=== PATIENT | female | born 1955 | race African-American/Black ===

== ENCOUNTER 2023-12-24 12:29 | Inpatient (IN) | payer OTHER ==
[2023-12-24 13:19] LABS: #Basophils Less than 0.03 10x3/uL (0.0-0.2); %Basophils 0.4 % (0.0-1.0); %Eosinophils 1.7 % (0.0-10.0); %Monocytes 5.8 % (0.0-10.0); %Neutrophils 68.9 % (42.0-75.0); Hematocrit 30.9 % (36.0-47.0); Hemoglobin 10.3 g/dL (12.0-16.0); Mean Corpuscular HGB CONC 33.3 g/dL (32.0-36.0); Mean Corpuscular Hemoglobin 31.9 pg (27.0-31.0); Mean Corpuscular Volume 95.7 fL (78.0-98.0); Mean Platelet Volume 10.6 fL (7.4-10.4); Platelet Count 209 10x3/uL (130-400); RBC Distribution Width 12.9 % (11.5-14.5); Red Blood Cell (RBC) Count 3.23 mill/uL (4.20-5.40)
[2023-12-24 13:36] LABS: Lipase 12 U/L (8-78); Magnesium 1.8 mg/dL (1.6-2.6)
[2023-12-24 13:37] LABS: Acetaminophen Less than 10 mcg/mL (10.0-30.0); Alcohol Less than 10.0 mg/dL (Less than 10); Salicylate Less than 8.0 mg/dL (15.0-30.0)
[2023-12-24 13:37] LABS: PTT 28.8 sec (22.9-36.1); Prothrombin Time 13.1 sec (12.0-14.7)
[2023-12-24 13:38] LABS: ALT (SGPT) 8 U/L (8-55); AST (SGOT) 21 U/L (5-34); Albumin 3.5 g/dL (3.4-4.8); Alkaline Phosphatase 124 U/L (40-110); Anion Gap 15 mmol/L (10-20); BUN (Urea Nitrogen) 6 mg/dL (9.8-20.1); Bilirubin, Total 0.5 mg/dL (0.2-1.2); CK (CPK) 144 U/L (29-168); Calc. Creatinine Clearance 0 mL/min (70-130); Carbon Dioxide 21 mmol/L (23-31); Chloride 103 mmol/L (98-107); Estimated GFR 65; Globulin 3.5 g/dL (2.4-3.5); Glucose 105 mg/dL (80-115); Potassium 3.7 mmol/L (3.5-5.1); Sodium 135 mmol/L (136-145)
[2023-12-24 13:42] LABS: Troponin I Less than 0.010 ng/mL (< 0.028)
[2023-12-24 13:48] LABS: Bacteria/HPF None Seen HPF (None Seen); Bilirubin Negative (Negative); Blood, Urine Negative (Negative); CAUTI Indications for Culture Alt mental st,lethar; Clarity Clear (Clear); Glucose, Urine (Dipstick) Normal (Negative); Ketone, Urine Negative (Negative); Leukocyte Negative Leu/uL (Negative); Nitrite Negative (Negative); Protein, Urine (Dipstick) Negative (Neg-Trace); RBC/HPF 0-3 HPF (0-3); Specific Gravity, Urine 1.024 (1.002-1.036); Squamous Epithelial None Seen HPF (0-3); Urobilinogen Normal mg/dL (Less than 2); WBC/HPF None Seen HPF (0-3)
[2023-12-24 13:58] LABS: Amphetamine Not Detected (NotDetected); Barbiturates Screen Not Detected (NotDetected); Benzodiazepine Screen Not Detected (NotDetected); Cocaine Metabolite Screen Not Detected (NotDetected); Methadone Not Detected (NotDetected); Methamphetamine Not Detected (NotDetected); Opiate Screen Not Detected (NotDetected); Oxycodone Screen Not Detected (NotDetected); Phencyclidine (PCP) Not Detected (NotDetected); THC/Cannabinoid Screen Not Detected (NotDetected); Tricyclic Screen Not Detected (NotDetected)
[2023-12-24 14:04] LABS: Urine Culture Reflex No No
[2023-12-24 14:26] LABS: Influenza A by NAA Not Detected (NotDetected); Influenza B by NAA Not Detected (NotDetected); SARS-CoV-2 NAA Rapid Test Not Detected (NotDetected)
[2023-12-24] MEDS ORDERED: Aspirin Chewable 81 MG TAB ONE (15:30)
[2023-12-24] MEDS ORDERED: hydrALAZINE 20 MG/ML VIAL ONE (15:54)
[2023-12-24] MEDS ORDERED: niCARdipine 25 MG/10 ML SDV ONE (16:40)
[2023-12-24 18:18] LABS: Troponin I Less than 0.010 ng/mL (< 0.028)
[2023-12-24] MEDS: Acetaminophen 325 MG TAB PO SCH (19:35)
[2023-12-24] MEDS: levETIRAcetam 500 MG (5 mL) VIAL SLOW IVP SCH (19:45)
[2023-12-24] MEDS: Lorazepam 2 MG/ML VIAL ONE (19:46)
[2023-12-24] MEDS: Lorazepam 2 MG/ML VIAL SLOW IVP PRN (19:46)
[2023-12-24 20:31] VITALS: BMI 19.3
[2023-12-24 20:35] LABS: Troponin I Less than 0.010 ng/mL (< 0.028)
[2023-12-24 20:38] LABS: Lactic Acid 4.4 mmol/L (0.5-2.2)
[2023-12-24] MEDS: Atorvastatin Calcium 40 MG TAB PO SCH (20:53)
[2023-12-24] MEDS ORDERED: Glucagon 1 MG/ML KIT IM PRN (21:19)
[2023-12-24] MEDS ORDERED: Dextrose 50% Abboject 50 ML SYRINGE SLOW IVP PRN (21:19)
[2023-12-24] MEDS ORDERED: Dextrose 5% in Water 1,000 ML IV PRN (21:19)
[2023-12-24] MEDS ORDERED: Electrolyte Replacement Protocol 1 EACH FS PRN (21:20)
[2023-12-24] MEDS: Lactated Ringer's 1,000 ML IV SCH (21:38)
[2023-12-24] MEDS: Magnesium 2 GM/50 ML(in water) 2 GM in Premix 1 BAG IVPB SCH (21:55)
[2023-12-25 07:20] LABS: #Basophils Less than 0.03 10x3/uL (0.0-0.2); #Eosinphils Less than 0.03 10x3/uL (0.0-0.7); %Basophils 0.1 % (0.0-1.0); %Lymphocytes 5.3 % (21.0-51.0); %Monocytes 2.9 % (0.0-10.0); %Neutrophils 91.3 % (42.0-75.0); Hematocrit 35.9 % (36.0-47.0); Hemoglobin 11.7 g/dL (12.0-16.0); Mean Corpuscular HGB CONC 32.6 g/dL (32.0-36.0); Mean Corpuscular Hemoglobin 31.8 pg (27.0-31.0); Mean Corpuscular Volume 97.6 fL (78.0-98.0); Mean Platelet Volume 10.2 fL (7.4-10.4); Platelet Count 269 10x3/uL (130-400); RBC Distribution Width 12.9 % (11.5-14.5); Red Blood Cell (RBC) Count 3.68 mill/uL (4.20-5.40)
[2023-12-25 07:29] LABS: Lactic Acid 1.1 mmol/L (0.5-2.2)
[2023-12-25 07:37] LABS: CRP,High Sensitivity (Inhouse) 0.63 mg/dL (< or = 0.5)
[2023-12-25 07:38] LABS: Anion Gap 16 mmol/L (10-20); BUN (Urea Nitrogen) 7 mg/dL (9.8-20.1); Calc. Creatinine Clearance 55 mL/min (70-130); Calcium 9.9 mg/dL (7.8-10.44); Carbon Dioxide 25 mmol/L (23-31); Cardiac Risk 2.4 (Less than 4.5); Chloride 99 mmol/L (98-107); Cholesterol 205 mg/dl (< 200 Desired); Estimated GFR 79; Glucose 144 mg/dL (80-115); HDL Cholesterol 84 mg/dL (>60 Neg Risk); LDL Cholesterol, Calculated 111 mg/dL; Potassium 3.3 mmol/L (3.5-5.1); Sodium 137 mmol/L (136-145); Triglycerides 49 mg/dL (Less than 150)
[2023-12-25 07:49] LABS: INR-International Normal Ratio 0.9; Prothrombin Time 12.2 sec (12.0-14.7)
[2023-12-25 07:50] LABS: PTT 27.3 sec (22.9-36.1)
[2023-12-25] MEDS ORDERED: levETIRAcetam 500 MG (5 mL) VIAL SLOW IVP SCH (09:00)
[2023-12-25] MEDS: Famotidine/PF 20 mg/2ml Vial SLOW IVP SCH (09:27)
[2023-12-25] MEDS: levETIRAcetam 500 MG (5 mL) VIAL SLOW IVP SCH (09:28)
[2023-12-25] MEDS: Labetalol HCl 100 MG/20 ML VIAL SLOW IVP PRN (11:38)
[2023-12-25] MEDS: Aspirin 325 MG TAB PO SCH (12:24)
[2023-12-25] MEDS: Potassium Bicarbonate/Cit Ac 20 MEQ TAB PO SCH (12:24)
[2023-12-25] MEDS: Potassium Chloride 20 MEQ TAB PO SCH (12:34)
[2023-12-25] MEDS: Potassium Chloride 20 MEQ in Premix 1 BAG IVPB SCH (12:34)
[2023-12-25] MEDS: Aspirin 325 mg Enteric Coated Tablet PO SCH (12:34)
[2023-12-25] MEDS: Aspirin 300 MG Suppository PR SCH (12:35)
[2023-12-25] MEDS: Haloperidol Lactate 5 MG/ML VIAL SLOW IVP PRN (17:01)
[2023-12-25 18:46] LABS: Potassium 3.8 mmol/L (3.5-5.1)
[2023-12-25] MEDS: Sterile Water 10 ML VIAL FS SCH (20:41)
[2023-12-25] MEDS: OLANZapine 10 MG VIAL IM SCH (20:41)
[2023-12-25] MEDS: hydrALAZINE 20 MG/ML VIAL SLOW IVP PRN (22:24)
[2023-12-26] MEDS: Amlodipine 10 MG TAB PO SCH (00:02)
[2023-12-26 08:54] LABS: #Basophils Less than 0.03 10x3/uL (0.0-0.2); #Eosinphils Less than 0.03 10x3/uL (0.0-0.7); %Basophils 0.2 % (0.0-1.0); %Eosinophils 0.1 % (0.0-10.0); %Lymphocytes 13.3 % (21.0-51.0); %Monocytes 6.5 % (0.0-10.0); %Neutrophils 79.7 % (42.0-75.0); Hematocrit 33.8 % (36.0-47.0); Hemoglobin 11.3 g/dL (12.0-16.0); Mean Corpuscular HGB CONC 33.4 g/dL (32.0-36.0); Mean Corpuscular Hemoglobin 32.2 pg (27.0-31.0); Mean Corpuscular Volume 96.3 fL (78.0-98.0); Mean Platelet Volume 10.3 fL (7.4-10.4); Platelet Count 256 10x3/uL (130-400); RBC Distribution Width 12.9 % (11.5-14.5); Red Blood Cell (RBC) Count 3.51 mill/uL (4.20-5.40)
[2023-12-26] MEDS ORDERED: Aspirin 300 MG Suppository PR SCH (09:00)
[2023-12-26] MEDS: Lisinopril 10 MG TAB PO SCH (09:05)
[2023-12-26] MEDS: Aspirin 325 MG TAB PO SCH (09:05)
[2023-12-26 09:11] LABS: Anion Gap 11 mmol/L (10-20); BUN (Urea Nitrogen) 10 mg/dL (9.8-20.1); Calc. Creatinine Clearance 52 mL/min (70-130); Calcium 9.3 mg/dL (7.8-10.44); Carbon Dioxide 25 mmol/L (23-31); Chloride 97 mmol/L (98-107); Estimated GFR 75; Glucose 109 mg/dL (80-115); Potassium 3.6 mmol/L (3.5-5.1); Sodium 129 mmol/L (136-145)
[2023-12-26] MEDS: Sodium Chloride 0.9% 1,000 ML IV SCH (16:35)
[2023-12-27 05:08] LABS: Anion Gap 12 mmol/L (10-20); BUN (Urea Nitrogen) 14 mg/dL (9.8-20.1); Calc. Creatinine Clearance 50 mL/min (70-130); Calcium 8.8 mg/dL (7.8-10.44); Carbon Dioxide 22 mmol/L (23-31); Chloride 101 mmol/L (98-107); Estimated GFR 71; Glucose 80 mg/dL (80-115); Potassium 3.3 mmol/L (3.5-5.1); Sodium 132 mmol/L (136-145)
[2023-12-27] MEDS ORDERED: Potassium Chloride 20 MEQ TAB PO SCH (08:00)
[2023-12-27] MEDS: Potassium Bicarbonate/Cit Ac 20 MEQ TAB PO SCH (08:54)
[2023-12-27 12:28] LABS: Potassium 4.2 mmol/L (3.5-5.1)
[2023-12-28 15:32] LABS: Amphetamine Not Detected (NotDetected); Barbiturates Screen Not Detected (NotDetected); Benzodiazepine Screen Not Detected (NotDetected); Cocaine Metabolite Screen Not Detected (NotDetected); Methadone Not Detected (NotDetected); Methamphetamine Not Detected (NotDetected); Opiate Screen Not Detected (NotDetected); Oxycodone Screen Not Detected (NotDetected); Phencyclidine (PCP) Not Detected (NotDetected); THC/Cannabinoid Screen Not Detected (NotDetected); Tricyclic Screen Not Detected (NotDetected)
[2023-12-29 05:06] LABS: #Basophils Less than 0.03 10x3/uL (0.0-0.2); %Basophils 0.2 % (0.0-1.0); %Eosinophils 1.8 % (0.0-10.0); %Lymphocytes 25.3 % (21.0-51.0); %Monocytes 13.8 % (0.0-10.0); %Neutrophils 58.7 % (42.0-75.0); Hematocrit 29.9 % (36.0-47.0); Hemoglobin 9.6 g/dL (12.0-16.0); Mean Corpuscular HGB CONC 32.1 g/dL (32.0-36.0); Mean Corpuscular Hemoglobin 31.9 pg (27.0-31.0); Mean Corpuscular Volume 99.3 fL (78.0-98.0); Mean Platelet Volume 10.5 fL (7.4-10.4); Platelet Count 179 10x3/uL (130-400); RBC Distribution Width 13.2 % (11.5-14.5); Red Blood Cell (RBC) Count 3.01 mill/uL (4.20-5.40)
[2023-12-29 05:27] LABS: Anion Gap 13 mmol/L (10-20); BUN (Urea Nitrogen) 10 mg/dL (9.8-20.1); Calc. Creatinine Clearance 60 mL/min (70-130); Calcium 8.9 mg/dL (7.8-10.44); Carbon Dioxide 24 mmol/L (23-31); Chloride 107 mmol/L (98-107); Estimated GFR 88; Glucose 90 mg/dL (80-115); Potassium 3.3 mmol/L (3.5-5.1); Sodium 141 mmol/L (136-145)
[2023-12-29] MEDS: Potassium Chloride 20 MEQ TAB PO SCH (09:33)
[2023-12-29] MEDS: Lorazepam 2 MG/ML VIAL SLOW IVP SCH (20:48)
[2023-12-30 04:00] LABS: #Basophils Less than 0.03 10x3/uL (0.0-0.2); %Basophils 0.4 % (0.0-1.0); %Eosinophils 2.4 % (0.0-10.0); %Lymphocytes 27.7 % (21.0-51.0); %Monocytes 12.7 % (0.0-10.0); %Neutrophils 56.6 % (42.0-75.0); Hematocrit 27.1 % (36.0-47.0); Hemoglobin 8.8 g/dL (12.0-16.0); Mean Corpuscular HGB CONC 32.5 g/dL (32.0-36.0); Mean Corpuscular Hemoglobin 32.1 pg (27.0-31.0); Mean Corpuscular Volume 98.9 fL (78.0-98.0); Mean Platelet Volume 10.7 fL (7.4-10.4); Platelet Count 166 10x3/uL (130-400); RBC Distribution Width 13.2 % (11.5-14.5); Red Blood Cell (RBC) Count 2.74 mill/uL (4.20-5.40)
[2023-12-30 04:24] LABS: Anion Gap 9 mmol/L (10-20); BUN (Urea Nitrogen) 8 mg/dL (9.8-20.1); Calc. Creatinine Clearance 60 mL/min (70-130); Calcium 8.9 mg/dL (7.8-10.44); Carbon Dioxide 24 mmol/L (23-31); Chloride 109 mmol/L (98-107); Estimated GFR 88; Glucose 91 mg/dL (80-115); Potassium 3.3 mmol/L (3.5-5.1); Sodium 139 mmol/L (136-145)
[2023-12-30] MEDS: Lisinopril 20 MG TAB PO SCH (09:16)
[2023-12-30] MEDS: Amlodipine 5 MG TAB PO SCH (09:16)
[2023-12-30] MEDS: Potassium Chloride 20 MEQ TAB PO SCH (09:17)
[2023-12-30] MEDS: QUEtiapine 25 MG TAB PO SCH (21:13)
[2023-12-31 04:28] LABS: #Basophils Less than 0.03 10x3/uL (0.0-0.2); %Basophils 0.2 % (0.0-1.0); %Eosinophils 3.7 % (0.0-10.0); %Neutrophils 47.9 % (42.0-75.0); Hematocrit 29.3 % (36.0-47.0); Hemoglobin 9.5 g/dL (12.0-16.0); Mean Corpuscular HGB CONC 32.4 g/dL (32.0-36.0); Mean Corpuscular Hemoglobin 31.9 pg (27.0-31.0); Mean Corpuscular Volume 98.3 fL (78.0-98.0); Mean Platelet Volume 10.7 fL (7.4-10.4); Platelet Count 183 10x3/uL (130-400); Red Blood Cell (RBC) Count 2.98 mill/uL (4.20-5.40)
[2023-12-31 05:08] LABS: Anion Gap 13 mmol/L (10-20); BUN (Urea Nitrogen) 7 mg/dL (9.8-20.1); Calc. Creatinine Clearance 61 mL/min (70-130); Calcium 9.1 mg/dL (7.8-10.44); Carbon Dioxide 23 mmol/L (23-31); Chloride 108 mmol/L (98-107); Estimated GFR 90; Glucose 86 mg/dL (80-115); Potassium 3.5 mmol/L (3.5-5.1); Sodium 140 mmol/L (136-145)
[2023-12-31] MEDS: Potassium Bicarbonate/Cit Ac 20 MEQ TAB PO SCH (11:06)
[2023-12-31 11:42] VITALS: BMI 18.7
[2024-01-01 04:44] LABS: #Basophils Less than 0.03 10x3/uL (0.0-0.2); %Basophils 0.4 % (0.0-1.0); %Eosinophils 2.6 % (0.0-10.0); %Lymphocytes 36.9 % (21.0-51.0); %Monocytes 14.4 % (0.0-10.0); %Neutrophils 45.5 % (42.0-75.0); Hematocrit 26.9 % (36.0-47.0); Hemoglobin 8.7 g/dL (12.0-16.0); Mean Corpuscular HGB CONC 32.3 g/dL (32.0-36.0); Mean Corpuscular Hemoglobin 32.3 pg (27.0-31.0); Platelet Count 208 10x3/uL (130-400); RBC Distribution Width 13.1 % (11.5-14.5); Red Blood Cell (RBC) Count 2.69 mill/uL (4.20-5.40)
[2024-01-01 04:59] LABS: Anion Gap 12 mmol/L (10-20); BUN (Urea Nitrogen) 13 mg/dL (9.8-20.1); Calc. Creatinine Clearance 54 mL/min (70-130); Calcium 9.3 mg/dL (7.8-10.44); Carbon Dioxide 26 mmol/L (23-31); Chloride 106 mmol/L (98-107); Estimated GFR 77; Glucose 88 mg/dL (80-115); Potassium 3.6 mmol/L (3.5-5.1); Sodium 140 mmol/L (136-145)
[2024-01-01] MEDS: levETIRAcetam 500 MG TAB PO SCH (09:42)
[2024-01-01 12:09] VITALS: TEMP 98.4
[2024-01-01 12:45] VITALS: BP 164/71
[2024-01-01] MEDS ORDERED: Famotidine 20 MG TAB PO SCH (21:00)
== END 2024-01-01 14:57 | disposition home or self-care (01) | DRG 64 ==
LOC: ERS 12:29 → EDBD 14:57 → ERHOLD 14:57 → CCU 18:07 → 2SE 12-26 22:57
PROVIDERS: ADMIT Internal Medicine; ATTEND Family Medicine
DX: I63.9 Cerebral infarction, unspecified (principal); G93.41 Metabolic encephalopathy; R47.01 Aphasia; Z79.899 Other long term (current) drug therapy; R56.9 Unspecified convulsions; I10 Essential (primary) hypertension; E78.5 Hyperlipidemia, unspecified; I16.0 Hypertensive urgency
CPT/HCPCS: 36415; 36416; 70450; 70496; 70498; 70551; 71045; 80048; 80053; 80061; 80306; 80307; 81001; 82550; 83605; 83690; 83735; 83880; 84146; 84443; 84484; 85025; 85610; 85730; 86141; 87040; 87086; 93005; 93306; 96374; 96375; J0360; J1630; J1953; J2060; J3475; J7050; J7120; S0028